=== PATIENT | male | born 1960 ===

== ENCOUNTER 2025-06-07 06:25 | Day surgery (SDC) | payer OTHER ==
[2025-06-04 14:41] LABS: Absolute Lymphocytes (CBC) 1.5 K/uL (0.7-4.9); Hematocrit 43.5 % (39.6-49.0); Hemoglobin 14.6 g/dL (13.6-17.9); MCH 29.7 pg (27.0-35.0); MCHC 33.6 g/dL (32.0-36.0); MCV 88.3 fL (80-100); MPV 8.8 fL (7.6-11.3); Nucleated RBC Absolute Count 0.0 (0-0); Nucleated Red Blood Cells % 0.0 % (0-0); RBC Red Blood Cell Count 4.92 M/uL (4.33-5.43); White Blood Count 8.60 thou/uL (4.3-10.9)
[2025-06-04 14:56] LABS: Anion Gap 6.6 mEq/L (5.0-15.0); BUN Blood Urea Nitrogen 19.0 mg/dL (7-18); Glucose Level 92.0 mg/dL (74-106); Potassium 4.6 mEq/L (3.5-5.1)
[2025-06-07] MEDS: Ringers Lactate 1,000 ML IV ONE (06:45)
[2025-06-07] MEDS ORDERED: SUCCINYLCHOLINE 20 MG/ML (10 ML) IV ONE (07:22)
[2025-06-07] MEDS ORDERED: FENTANYL CITR 100 MCG/2 ML ONE (07:52)
[2025-06-07] MEDS ORDERED: GLYCOPYRROLATE 0.2 MG/ML SYR ONE (07:52)
[2025-06-07] MEDS ORDERED: EPHEDRINE SULF 50 MG/ML VIAL ONE (07:52)
[2025-06-07] MEDS ORDERED: LIDOCAINE 1% MPF 5 ML VIAL ONE (07:53)
[2025-06-07] MEDS ORDERED: Ringers Lactate 1,000 ML IV ONE (08:48)
[2025-06-07 09:47] VITALS: O2SAT 99
[2025-06-07 09:53] VITALS: BP 124/70; TEMP 97.1
== END 2025-06-07 10:43 | disposition home or self-care (01) ==
LOC: OR 06:25
PROVIDERS: ATTEND Surgery
PROC: 0DBL8ZX Excision of Transverse Colon, Via Natural or Artificial Opening Endoscopic, Diagnostic (ICD-10-PCS; 2025-06-07)
PROC: 0DBN8ZX Excision of Sigmoid Colon, Via Natural or Artificial Opening Endoscopic, Diagnostic (ICD-10-PCS; principal; 2025-06-07 08:00)
DX: Z12.11 Encounter for screening for malignant neoplasm of colon (principal); N42.9 Disorder of prostate, unspecified; K64.8 Other hemorrhoids; D12.5 Benign neoplasm of sigmoid colon; D12.3 Benign neoplasm of transverse colon
CPT/HCPCS: 93005; 85025; 80048; 36415; 88305; 45385; J2704 ×2; J2003; J7120 ×2; J0330; J3010